=== PATIENT | female | born 1955 | race Asian ===

== ENCOUNTER 2022-11-18 13:44 | Emergency (ER) | payer MEDICARE, OTHER ==
[2022-11-18 14:12] VITALS: O2SAT 100
--- NOTE | 2022-11-18 15:26 | CT Report ---
PROCEDURE: HEAD WO INDICATIONS: R facial droop TECHNIQUE: Noncontrast 4.5 mm thick angled axial sections acquired from the foramen magnum to the vertex. For r adiation dose reduction, the following was used: automated exposure control, adjustment of mA and/or kV according to patient size. COMPARISON: None. FINDINGS: Image quality: Excellent. CSF spaces: Basal cisterns are patent. No extra-axial fluid collections. Ventricles are normal in size and shape. Brain: No midline shift. No intracranial masses or hemorrhage. Membreno-white matter interface is norm al. Skull and face: Calvarium and visualized facial bones are intact, without suspicious lesions. Sinuses: Visualized sinuses and mastoids are clear. IMPRESSION: No acute intracranial pathology Reviewed by: Benjamin Conklin MD on 11/18/2022 3:25 PM PDT Approved by: Benjamin Conklin MD on 11/18/2022 3:25 PM PDT Station ID: [id number]
[2022-11-18] MEDS ORDERED: DEXAMETHASONE 10 MG/ML VIAL PO STA (15:39)
[2022-11-18] MEDS ORDERED: CHERRY SYRUP 10 ML UDC PO ONE (15:39)
--- NOTE | 2022-11-18 15:42 | ED Physician Documentation ---
History of Present Illness - Stated complaint Stated Complaint: FACIAL DROOP - Chief complaint Chief Complaint: Heent - History obtained from History obtained from: Patient, Family - History of Present Illness Timing: Today - Additonal information Additional information: Myke Lowe was riding in the car with her today when she experienced some numbness to the right side of her face. She eventually made her way to the urgent care in [place] where she was examined and with the numbness she was having on the right side of her face she appeared to have a facial droop on the left side. She was sent here for further evaluation. Review of Systems Constitutional: denies: Fever Eyes: denies: Decreased vision Ears: denies: Ear pain Nose: denies: Rhinorrhea / runny nose, Congestion Throat: denies: Sore throat Cardiac: denies: Chest pain / pressure Respiratory: denies: Cough GI: denies: Nausea, Vomiting, Constipation, Diarrhea : denies: Dysuria, Frequency Skin: denies: Rash Musculoskeletal: reports: Extremity pain, Extremity swelling (from bee sting 2 d ays ago). 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 : None HEENT: None Psych: None Musculoskeletal: None Derm: None - Past Surgical History Past Surgical History: Yes General: Other /POWER SAW MECHANIC: Hysterectomy - Present Medications Home Medications: Ambulatory Orders Medication Instructions Recorded Confirmed Valacyclovir HCl [Valtrex] 1,000 mg PO TID #15 tablet 11/18/22 - Allergies Allergies/Adverse Reactions: Allergies Allergy/AdvReac Type Severity Reaction Status Date / Time No Known Drug Allergies Allergy Verified 11/18/22 13:56 - Social History Does the pt smoke?: No Smoking Status: Never smoker Does the pt drink ETOH?: No Does the pt have substance abuse?: No - Immunizations Immunizations are current?: Yes - POLST Patient has POLST: No PD ED PE NORMAL - Vitals Vital signs reviewed: Yes (hypertensive ) - General General: Alert and oriented X 3, No acute distress, Well developed/nourished - HEENT HEENT: Atraumatic, PERRL, EOMI, Ears normal, Moist mucous membranes, Pharynx benign, Dentition benign, Other (There is facial asymetry giving the appearence of a droop on the left side. When the patient talks it is evident that the right side of the mouth is not moving and the left side moves normally ) - Neck Neck: Supple, no meningeal sign, No bony TTP - Cardiac Cardiac: RRR, No murmur - Respiratory Respiratory: No respiratory distress, Clear bilaterally - Abdomen Abdomen: Soft, Non tender - Back Back: No CVA TTP, No spinal TTP - Derm Derm: Normal color, Warm and dry, No rash - Extremities Extremities: No deformity, No edema - Neuro Neuro: Alert and oriented X 3, surgical attendant 2-12 intact, No motor deficit, No sensory deficit, Normal speech Eye Opening: Spontaneous Motor: Obeys Commands Verbal: Oriented GCS Score: 15 - Psych Psych: Normal mood, Normal affect Results - Vitals Vitals: Vital Signs - 24 hr 11/18/22 11/18/22 13:45 14:09 Temperature 37.3 C Heart Rate 84 71 Respiratory 19 18 Rate Blood Pressure 146/78 H O2 Saturation 98 100 Oxygen O2 Source Room air - Rads (name of study) CT head Relevant Findings:: Prelim report reviewed (Impression: Acute intracranial pathology.), EMP independent interpretation of test PD Medical Decision Making - ED course Complexity details: considered differential, d/w patient, d/w family ED course: 67-year-old young boy neck has developed some numbness to the right side of her face. She was seen by urgent care and directed to the emergency department when they discovered what appeared to be a left-sided facial droop associated with right-sided numbness. On my exam I was impressed by what looked like a left- sided facial droop and it was not until I was able to examine the patient while she was talking that I could see clearly that the right side of her mouth had normal motor movement in the left side was not moving. 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 We did do CT scan of the head. This was a normal study. Departure - Departure Disposition: 01 Home, Self Care Clinical Impression: Edmondson's palsy Condition: Stable Instructions: ED Bethel Palsy Prescriptions: Valacyclovir HCl [Valtrex] 1,000 mg PO TID #15 tablet Comments: Myke, today it looks like you have a Edmondson's palsy, which is a compression of a peripheral nerve. This usually causes symptoms in 1 area of your body and it looks like the right side of your face has slight paralysis and numbness. We have given you a dose of dexamethasone which may help with this over the next 12 hours. I have E scribed some Hanna acyclovir to the [facility] in [place]. This is an antiviral medication recommended when Edmondson's palsy is diagnosed. You will need to take it for about 5 days. If you have worsening or development of new symptoms, a follow-up at a nearby emergency department would be indicated. The usual course for Bethel palsy is improvement over the first week and resolution by 6 weeks. Forms: PCP List
[2022-11-18 15:58] VITALS: BP 111/59
== END 2022-11-18 16:00 | disposition home or self-care (01) ==
LOC: ED 13:44
DX: G51.0 Bell's palsy (principal)
CPT/HCPCS: 70450; 99284; A9270